=== PATIENT | female | born 1940 | race Caucasian/White ===

== ENCOUNTER 2017-12-22 15:10 | Observation (INO) | payer MEDICARE, BC ==
[~2017-12-22] VITALS: Ht 177.8 cm; Wt 75.0 kg
[~2017-12-22 15:10] MED LIST: ALENDRONATE70 MG PO; AMOXICILLIN/CL500 MG PO; ASPIRIN EC81 MG PO; AUGMENTIN875TAB PO; CIPROFLOXACIN500 M1 PO; CIPROFLOXACN500 MG PO; CLINDAMYCIN HC300 MG PO; DICLOFENAC75 MG PO; FLAGYL500 MG PO; FLEXERIL10 MG PO; FLONASE NASAL50 MCG; LORTAB 5-325 MG1 TAB PO; LORTAB5 PO; MECLIZINE25 MG PO; METRONIDAZOL500 MG PO; PHENERGAN25 MG/TAB PO; PRAVASTATIN SOD20 MG PO; SYNTHROID125 MCG PO; SYNTHROID150 MCG PO; TET/DIP TOX1 ML IM; TRAMADOL HCL50 MG PO; ULTRAM50 M1 PO
[2017-12-22 15:39] VITALS: BP 146/67
[2017-12-22 16:11] LABS: HEMOGLOBIN 14.4 g/dl (12.0-16.0); MEAN CELL VOLUME 90.7 fL CALC (80.0-100.0); MEAN CORPUSCULAR HGB 31.1 pG CALC (26.0-32.0); MEAN CORPUSCULAR HGB CONC 34.3 g/L CALC (32.0-36.0); RED BLOOD COUNT 4.63 mill/uL (4.20-5.60); RED CELL DISTRI WIDTH 12.5 % (11.5-15.5)
[2017-12-22 16:34] VITALS: BP 155/77
[2017-12-22 16:35] LABS: ANION GAP 12 (6-22 (CALC)); BUN 12 mg/dL (8-23); BUN/CREATININE RATIO 18 (12-20 (CALC)); CARBON DIOXIDE 27 mmol/l (22-30); CHLORIDE 106 mmol/l (95-108); CREATININE 0.7 mg/dL (0.5-1.0); GFR > 60 ML/MIN (>=60 (CALC)); GFR FOR AFR.AMER. > 60 ML/MIN (>=60 (CALC)); SODIUM 140 mmol/l (137-146)
[2017-12-22] MEDS ORDERED: CLARITIN10 M2 PO (16:56)
[2017-12-22] MEDS ORDERED: DILTIAZEM120 M1 PO (16:58)
[2017-12-22] MEDS ORDERED: MECLIZINE25 MG PO (16:59)
[2017-12-22] MEDS ORDERED: ALLERGY NA50 MCG/ACT NAB (17:03)
[2017-12-22 17:37] LABS: URINE BILIRUBIN - DIPSTICK NEGATIVE (NEGATIVE); URINE BLOOD DIPSTICK TRACE-INTACT (NEGATIVE); URINE COLOR YELLOW; URINE GLUCOSE - DIPSTICK NEGATIVE (NEGATIVE); URINE KETONE NEGATIVE (NEGATIVE); URINE LEUK ESTERASE NEGATIVE (Negative); URINE NITRITE - DIPSTICK NEGATIVE (Negative); URINE PH 6.5 (4.5-8.0); URINE PROTEIN - DIPSTICK NEGATIVE (NEG-TRACE); URINE SPECIFIC GRAVITY <=1.005; URINE UROBILINOGEN - DIPSTICK 0.2 E.U./dL (0.2)
[2017-12-22 17:45] LABS: URINE CLARITY CLEAR
[2017-12-22 17:47] VITALS: BP 126/71
[2017-12-22 19:25] VITALS: BP 99/58
[2017-12-23 00:10] VITALS: BP 86/57
[2017-12-23 04:00] VITALS: BP 96/59
[2017-12-23 05:24] LABS: HEMOGLOBIN 13.2 g/dl (12.0-16.0); IMMATURE GRANULOCYTES 0.5 % (0.0-1.0); MEAN CELL VOLUME 92.2 fL CALC (80.0-100.0); MEAN CORPUSCULAR HGB 30.4 pG CALC (26.0-32.0); NEUT# 2.31 thou/uL (2.00-7.15); RED BLOOD COUNT 4.34 mill/uL (4.20-5.60); RED CELL DISTRI WIDTH 12.5 % (11.5-15.5)
[2017-12-23 05:42] LABS: ALBUMIN 3.7 g/dL (3.2-5.0); ALKALINE PHOSPHATASE 59 u/l (38-126); ANION GAP 10 (6-22 (CALC)); BILIRUBIN, TOTAL 0.8 mg/dL (0.0-1.4); BUN 12 mg/dL (8-23); BUN/CREATININE RATIO 18 (12-20 (CALC)); CALCULATED LDLCHOLESTEROL 108 mg/dL (62-129 (CALC)); CARBON DIOXIDE 29 mmol/l (22-30); CHLORIDE 105 mmol/l (95-108); CHOLESTEROL HDL RATIO 3.1 (<4.4 (CALC)); CREATININE 0.7 mg/dL (0.5-1.0); GFR > 60 ML/MIN (>=60 (CALC)); GFR FOR AFR.AMER. > 60 ML/MIN (>=60 (CALC)); HDL CHOLESTEROL 64 mg/dL (>=40); SGOT/AST 23 u/l (9-36); SGPT/ALT 33 u/l (11-66); SODIUM 140 mmol/l (137-146); TOTAL CHOLESTEROL 196 mg/dl (0-199); TOTAL PROTEIN 6.3 g/dL (6.3-8.2); TOTAL TRIGLYCERIDES 122 mg/dl (30-149); VLDL CHOLESTROL 24 mg/dl (0-48 (CALC))
[2017-12-23 06:11] LABS: TSH, 3RD GENERATION 3.53 uIU/mL (0.47 - 4.68)
[2017-12-23 08:14] VITALS: BP 98/62
[2017-12-23 11:05] VITALS: BP 110/68
[2017-12-23 15:25] VITALS: BP 130/60
[2017-12-23] MEDS ORDERED: MECLIZINE25 MG PO (17:47)
[2017-12-23] MEDS ORDERED: PHENERGAN25 MG/TAB PO (17:48)
== END 2017-12-23 18:15 | disposition home or self-care (01) ==
LOC: MS2 15:10
PROVIDERS: ADMIT Internal Medicine Geriatric Medicine; ATTEND Internal Medicine Geriatric Medicine
DX: R42 Dizziness and giddiness (principal); R11.0 Nausea; I10 Essential (primary) hypertension; E78.5 Hyperlipidemia, unspecified; E03.9 Hypothyroidism, unspecified; K21.9 Gastro-esophageal reflux disease without esophagitis; F41.9 Anxiety disorder, unspecified; Z85.3 Personal history of malignant neoplasm of breast; Z92.3 Personal history of irradiation

== ENCOUNTER 2018-07-20 16:31 | Observation (INO) | payer MEDICARE, BC, OTHER ==
[~2018-07-20] VITALS: Ht 180.3 cm; Wt 73.0 kg
[~2018-07-20 16:31] MED LIST changes: +ALLERGY NA50 MCG/ACT NAB; +CLARITIN10 M2 PO; +DILTIAZEM120 M1 PO
[2018-07-20 16:45] VITALS: BP 151/71
[2018-07-20 18:39] LABS: URINE BILIRUBIN - DIPSTICK NEGATIVE (NEGATIVE); URINE BLOOD DIPSTICK TRACE-INTACT (NEGATIVE); URINE COLOR YELLOW; URINE GLUCOSE - DIPSTICK NEGATIVE (NEGATIVE); URINE KETONE NEGATIVE (NEGATIVE); URINE LEUK ESTERASE NEGATIVE (NEGATIVE); URINE NITRITE - DIPSTICK NEGATIVE (Negative); URINE PROTEIN - DIPSTICK NEGATIVE (NEG-TRACE); URINE SPECIFIC GRAVITY 1.015; URINE UROBILINOGEN - DIPSTICK 0.2 E.U./dL (0.2)
[2018-07-20 18:39] LABS: HEMOGLOBIN 13.5 g/dl (12.0-16.0); IMMATURE GRANULOCYTES 0.4 % (0.0-5.0); MEAN CELL VOLUME 90.1 fL CALC (80.0-100.0); MEAN CORPUSCULAR HGB 31.2 pG CALC (26.0-32.0); MEAN CORPUSCULAR HGB CONC 34.6 g/L CALC (32.0-36.0); NEUT# 8.47 thou/uL (2.00-7.15); RED BLOOD COUNT 4.33 mill/uL (4.20-5.60); RED CELL DISTRI WIDTH 12.3 % (11.5-15.5)
[2018-07-20 18:51] LABS: ANION GAP 13 (6-22 (CALC)); BUN 8 mg/dL (8-23); BUN/CREATININE RATIO 11 (12-20 (CALC)); CARBON DIOXIDE 27 mmol/l (22-30); CHLORIDE 103 mmol/l (95-108); CREATININE 0.7 mg/dL (0.5-1.0); GFR > 60 ML/MIN (>=60 (CALC)); GFR FOR AFR.AMER. > 60 ML/MIN (>=60 (CALC)); POTASSIUM 3.9 mmol/l (3.5-5.1); SODIUM 139 mmol/l (137-146)
[2018-07-20 20:00] VITALS: BP 129/62
[2018-07-21 04:46] VITALS: BP 105/58
[2018-07-21 05:44] LABS: HEMATOCRIT 38.9 % (37.0-47.0); HEMOGLOBIN 13.3 g/dl (12.0-16.0); IMMATURE GRANULOCYTES 0.2 % (0.0-5.0); MEAN CELL VOLUME 91.1 fL CALC (80.0-100.0); MEAN CORPUSCULAR HGB 31.1 pG CALC (26.0-32.0); MEAN CORPUSCULAR HGB CONC 34.2 g/L CALC (32.0-36.0); NEUT# 8.53 thou/uL (2.00-7.15); RED BLOOD COUNT 4.27 mill/uL (4.20-5.60); RED CELL DISTRI WIDTH 12.5 % (11.5-15.5)
[2018-07-21 05:54] LABS: ALBUMIN 3.7 g/dL (3.2-5.0); ALKALINE PHOSPHATASE 106 u/l (38-126); ANION GAP 16 (6-22 (CALC)); BILIRUBIN, TOTAL 1.4 mg/dL (0.0-1.4); BUN 8 mg/dL (8-23); BUN/CREATININE RATIO 11 (12-20 (CALC)); CALCULATED LDLCHOLESTEROL 110 mg/dL (62-129 (CALC)); CARBON DIOXIDE 24 mmol/l (22-30); CHLORIDE 104 mmol/l (95-108); CHOLESTEROL HDL RATIO 2.6 (<4.4 (CALC)); CREATININE 0.7 mg/dL (0.5-1.0); GFR > 60 ML/MIN (>=60 (CALC)); GFR FOR AFR.AMER. > 60 ML/MIN (>=60 (CALC)); HDL CHOLESTEROL 80 mg/dL (>=40); POTASSIUM 3.8 mmol/l (3.5-5.1); SGOT/AST 33 u/l (9-36); SODIUM 139 mmol/l (137-146); TOTAL CHOLESTEROL 203 mg/dl (0-199); TOTAL PROTEIN 6.4 g/dL (6.3-8.2); TOTAL TRIGLYCERIDES 69 mg/dl (30-149); VLDL CHOLESTROL 14 mg/dl (0-48 (CALC))
[2018-07-21 06:13] LABS: TSH, 3RD GENERATION 1.43 uIU/mL (0.47 - 4.68)
[2018-07-21 08:48] VITALS: BP 100/43
[2018-07-21 11:36] VITALS: BP 114/54
[2018-07-21 16:17] VITALS: BP 122/69
[2018-07-21 17:50] VITALS: BP 125/68
[2018-07-21 20:00] VITALS: BP 121/60
[2018-07-22] VITALS (7 sets, daily range): BP systolic 97–120; BP diastolic 54–71
[2018-07-22 05:36] LABS: HEMATOCRIT 35.8 % (37.0-47.0); HEMOGLOBIN 12.2 g/dl (12.0-16.0); IMMATURE GRANULOCYTES 0.3 % (0.0-5.0); MEAN CELL VOLUME 92.3 fL CALC (80.0-100.0); MEAN CORPUSCULAR HGB 31.4 pG CALC (26.0-32.0); MEAN CORPUSCULAR HGB CONC 34.1 g/L CALC (32.0-36.0); NEUT# 5.54 thou/uL (2.00-7.15); RED BLOOD COUNT 3.88 mill/uL (4.20-5.60); RED CELL DISTRI WIDTH 12.6 % (11.5-15.5)
[2018-07-22 06:07] LABS: ALBUMIN 3.2 g/dL (3.2-5.0); ALKALINE PHOSPHATASE 97 u/l (38-126); ANION GAP 12 (6-22 (CALC)); BILIRUBIN, TOTAL 0.8 mg/dL (0.0-1.4); BUN 5 mg/dL (8-23); BUN/CREATININE RATIO 8 (12-20 (CALC)); CARBON DIOXIDE 25 mmol/l (22-30); CHLORIDE 106 mmol/l (95-108); CREATININE 0.7 mg/dL (0.5-1.0); GFR > 60 ML/MIN (>=60 (CALC)); GFR FOR AFR.AMER. > 60 ML/MIN (>=60 (CALC)); POTASSIUM 4.2 mmol/l (3.5-5.1); SGOT/AST 32 u/l (9-36); SODIUM 140 mmol/l (137-146); TOTAL PROTEIN 5.7 g/dL (6.3-8.2)
[2018-07-23 00:18] VITALS: BP 105/62
[2018-07-23 04:00] VITALS: BP 96/53
[2018-07-23 05:12] LABS: HEMATOCRIT 34.7 % (37.0-47.0); HEMOGLOBIN 11.7 g/dl (12.0-16.0); IMMATURE GRANULOCYTES 0.2 % (0.0-5.0); MEAN CELL VOLUME 92.5 fL CALC (80.0-100.0); MEAN CORPUSCULAR HGB 31.2 pG CALC (26.0-32.0); MEAN CORPUSCULAR HGB CONC 33.7 g/L CALC (32.0-36.0); NEUT# 2.52 thou/uL (2.00-7.15); RED BLOOD COUNT 3.75 mill/uL (4.20-5.60); RED CELL DISTRI WIDTH 12.4 % (11.5-15.5)
[2018-07-23 05:33] LABS: ANION GAP 13 (6-22 (CALC)); BUN 5 mg/dL (8-23); BUN/CREATININE RATIO 7 (12-20 (CALC)); CARBON DIOXIDE 24 mmol/l (22-30); CHLORIDE 107 mmol/l (95-108); CREATININE 0.7 mg/dL (0.5-1.0); GFR > 60 ML/MIN (>=60 (CALC)); GFR FOR AFR.AMER. > 60 ML/MIN (>=60 (CALC)); POTASSIUM 4.3 mmol/l (3.5-5.1); SODIUM 140 mmol/l (137-146)
[2018-07-23 09:49] VITALS: BP 94/72
[2018-07-23 15:20] VITALS: BP 114/66
[2018-07-23 20:00] VITALS: BP 112/67
[2018-07-24 00:32] VITALS: BP 107/67
[2018-07-24 04:30] VITALS: BP 112/72
[2018-07-24 05:29] LABS: HEMATOCRIT 36.8 % (37.0-47.0); HEMOGLOBIN 12.3 g/dl (12.0-16.0); IMMATURE GRANULOCYTES 0.2 % (0.0-5.0); MEAN CORPUSCULAR HGB 30.8 pG CALC (26.0-32.0); MEAN CORPUSCULAR HGB CONC 33.4 g/L CALC (32.0-36.0); NEUT# 2.32 thou/uL (2.00-7.15); RED CELL DISTRI WIDTH 12.2 % (11.5-15.5)
[2018-07-24 05:55] LABS: ANION GAP 13 (6-22 (CALC)); BUN 6 mg/dL (8-23); BUN/CREATININE RATIO 10 (12-20 (CALC)); CARBON DIOXIDE 25 mmol/l (22-30); CHLORIDE 107 mmol/l (95-108); CREATININE 0.6 mg/dL (0.5-1.0); GFR > 60 ML/MIN (>=60 (CALC)); GFR FOR AFR.AMER. > 60 ML/MIN (>=60 (CALC)); POTASSIUM 4.4 mmol/l (3.5-5.1); SODIUM 141 mmol/l (137-146)
[2018-07-24 07:59] VITALS: BP 129/55
[2018-07-24 12:17] VITALS: BP 125/60
[2018-07-24 14:50] VITALS: BP 135/73
[2018-07-24 19:30] VITALS: BP 130/75
[2018-07-25 04:50] VITALS: BP 119/75
[2018-07-25 05:58] LABS: HEMATOCRIT 36.1 % (37.0-47.0); HEMOGLOBIN 12.3 g/dl (12.0-16.0); IMMATURE GRANULOCYTES 0.2 % (0.0-5.0); MEAN CELL VOLUME 91.6 fL CALC (80.0-100.0); MEAN CORPUSCULAR HGB 31.2 pG CALC (26.0-32.0); MEAN CORPUSCULAR HGB CONC 34.1 g/L CALC (32.0-36.0); NEUT# 2.21 thou/uL (2.00-7.15); RED BLOOD COUNT 3.94 mill/uL (4.20-5.60); RED CELL DISTRI WIDTH 12.1 % (11.5-15.5)
[2018-07-25 06:22] LABS: ALBUMIN 3.2 g/dL (3.2-5.0); ALKALINE PHOSPHATASE 83 u/l (38-126); ANION GAP 14 (6-22 (CALC)); BILIRUBIN, TOTAL 0.5 mg/dL (0.0-1.4); BUN 10 mg/dL (8-23); BUN/CREATININE RATIO 14 (12-20 (CALC)); CARBON DIOXIDE 24 mmol/l (22-30); CHLORIDE 107 mmol/l (95-108); CREATININE 0.7 mg/dL (0.5-1.0); GFR > 60 ML/MIN (>=60 (CALC)); GFR FOR AFR.AMER. > 60 ML/MIN (>=60 (CALC)); POTASSIUM 4.7 mmol/l (3.5-5.1); SGOT/AST 24 u/l (9-36); SODIUM 140 mmol/l (137-146); TOTAL PROTEIN 5.6 g/dL (6.3-8.2)
[2018-07-25 08:36] VITALS: BP 117/74
[2018-07-25 12:29] VITALS: BP 141/65
[2018-07-25 16:43] VITALS: BP 131/58
[2018-07-25 19:00] VITALS: BP 126/71
[2018-07-26 00:16] VITALS: BP 127/74
[2018-07-26 04:20] VITALS: BP 117/68
[2018-07-26 08:25] VITALS: BP 128/75
[2018-07-26] MEDS ORDERED: METRONIDAZOL500 MG PO (08:43)
[2018-07-26] MEDS ORDERED: CIPROFLOXACN500 MG PO (08:44)
== END 2018-07-26 11:32 | disposition home or self-care (01) ==
LOC: MS2 16:31
PROVIDERS: ADMIT Internal Medicine Geriatric Medicine; ATTEND Internal Medicine Geriatric Medicine
DX: K57.32 Diverticulitis of large intestine without perforation or abscess without bleeding (principal); I10 Essential (primary) hypertension; E78.5 Hyperlipidemia, unspecified; E03.9 Hypothyroidism, unspecified; M19.90 Unspecified osteoarthritis, unspecified site; Z85.3 Personal history of malignant neoplasm of breast
CPT/HCPCS: Q9967

== ENCOUNTER 2019-11-17 | Emergency (ER) | payer MEDICARE ==
[2019-11-17 16:32] LABS: HEMATOCRIT 43.2 % (37.0-47.0); HEMOGLOBIN 14.7 g/dl (12.0-16.0); IMMATURE GRANULOCYTES 0.4 % (0.0-5.0); MEAN CELL VOLUME 90.4 fL CALC (80.0-100.0); MEAN CORPUSCULAR HGB 30.8 pG CALC (26.0-32.0); NEUT# 3.61 thou/uL (2.00-7.15); RED BLOOD COUNT 4.78 mill/uL (4.20-5.60); RED CELL DISTRI WIDTH 12.5 % (11.5-15.5)
[2019-11-17 16:49] LABS: ALBUMIN 4.8 g/dL (3.2-5.0); ALKALINE PHOSPHATASE 85 u/l (38-126); ANION GAP 10 (6-22 (CALC)); BILIRUBIN, TOTAL 0.8 mg/dL (0.0-1.4); BUN 10 mg/dL (8-23); BUN/CREATININE RATIO 15 (12-20 (CALC)); CARBON DIOXIDE 28 mmol/l (22-30); CHLORIDE 103 mmol/l (95-108); CREATININE 0.7 mg/dL (0.5-1.0); GFR > 60 ML/MIN (>=60 (CALC)); GFR FOR AFR.AMER. > 60 ML/MIN (>=60 (CALC)); LIPASE 190 u/l (23-300); SGOT/AST 39 u/l (9-36); SODIUM 138 mmol/l (137-146); TOTAL PROTEIN 8.1 g/dL (6.3-8.2)
== END 2019-11-17 19:27 | disposition short-term general hospital (02) ==
PROVIDERS: Family Medicine
DX: R07.9 Chest pain, unspecified (principal); I45.10 Unspecified right bundle-branch block; I10 Essential (primary) hypertension; Z86.73 Personal history of transient ischemic attack (TIA), and cerebral infarction without residual deficits
CPT/HCPCS: J1644

== ENCOUNTER 2020-03-22 12:38 | Observation (INO) | payer MEDICARE ==
[~2020-03-22] VITALS: Ht 180.3 cm; Wt 77.1 kg
--- NOTE | 2020-03-22 12:56 | NUR ---
PT TO ROOM VIA EC
[2020-03-22 14:13] LABS: HEMATOCRIT 41.3 % (37.0-47.0); HEMOGLOBIN 13.3 g/dl (12.0-16.0); IMMATURE GRANULOCYTES 0.2 % (0.0-5.0); MEAN CELL VOLUME 92.6 fL CALC (80.0-100.0); MEAN CORPUSCULAR HGB 29.8 pG CALC (26.0-32.0); MEAN CORPUSCULAR HGB CONC 32.2 g/dL CAL (32.0-36.0); NEUT# 8.42 thou/uL (2.00-7.15); RED BLOOD COUNT 4.46 mill/uL (4.20-5.60); RED CELL DISTRI WIDTH 12.1 % (11.5-15.5)
--- NOTE | 2020-03-22 14:17 | NUR ---
PT RESTING ON STRETCHER WITH EYES CLOSED, AWAKENS WITH VERBAL STIMULI. RESPS EVEN AND UNLABORED ON ROOM AIR, MONITORS ATTACHED. ALERT TO PERSON AND PLACE.
[2020-03-22 14:33] LABS: ALBUMIN 4.4 g/dL (3.2-5.0); ALKALINE PHOSPHATASE 73 u/l (38-126); BUN 8 mg/dL (8-23); BUN/CREATININE RATIO 12 (12-20 (CALC)); CHLORIDE 105 mmol/l (95-108); CREATININE 0.7 mg/dL (0.5-1.0); GFR > 60 ML/MIN (>=60 (CALC)); GFR FOR AFR.AMER. > 60 ML/MIN (>=60 (CALC)); LIPASE 97 u/l (23-300); POTASSIUM 3.9 mmol/l (3.5-5.1); SGOT/AST 37 u/l (9-36); SODIUM 136 mmol/l (137-146); TOTAL PROTEIN 7.2 g/dL (6.3-8.2)
--- NOTE | 2020-03-22 14:36 | NUR ---
UNABLE TO OBTAIN IV SITE AFTER MULTIPLE ATTEMPTS BY MULTIPLE NURSES.
[2020-03-22 14:38] LABS: ANION GAP 13 (6-22 (CALC)); BILIRUBIN, TOTAL 1.8 mg/dL (0.0-1.4); CARBON DIOXIDE 22 mmol/l (22-30)
[2020-03-22 14:53] LABS: URINE BILIRUBIN - DIPSTICK NEGATIVE (NEGATIVE); URINE BLOOD DIPSTICK TRACE-INTACT (NEGATIVE); URINE COLOR YELLOW; URINE GLUCOSE - DIPSTICK NEGATIVE (NEGATIVE); URINE KETONE 15 mg/dL (NEGATIVE); URINE LEUK ESTERASE TRACE (NEGATIVE); URINE NITRITE - DIPSTICK NEGATIVE (Negative); URINE PROTEIN - DIPSTICK NEGATIVE (NEG-TRACE); URINE SPECIFIC GRAVITY 1.025; URINE UROBILINOGEN - DIPSTICK 0.2 E.U./dL (0.2)
--- NOTE | 2020-03-22 15:15 | NUR ---
TO RADIOLOGY IN STABLE CONDITION VIA STRETCHER.
--- NOTE | 2020-03-22 15:40 | NUR ---
PT RETURNED FROM RADIOLOGY VIA STRETCHER. #20 RFA INFUSING WITHOUT DIFFICULTY, SITE APPEARS HEALTHY. AT BEDSIDE.
--- NOTE | 2020-03-22 17:00 | NUR ---
ASSISTED PT TO BEDSIDE COMMODE WITH PIVOT TRANSFER. PT ATTEMPTED TO AMBULATE, GAIT UNSTEADY, UNABLE TO TAKE 3 STEPS. AT BEDSIDE.
--- NOTE | 2020-03-22 17:05 | NUR ---
MD AT BEDSIDE TO DISCUSS RESULTS AND POC. AT BEDSIDE.
--- NOTE | 2020-03-22 17:08 | NUR ---
MD AT BEDSIDE TO DISCUSS RESULTS AND POC.
--- NOTE | 2020-03-22 17:50 | NUR ---
NURSE TO NURSE REPORT CALLED TO CORI [facility]FIELD.
--- NOTE | 2020-03-22 18:40 | NUR ---
TO MED SURG VIA STRETCHER.
[2020-03-22 18:45] VITALS: BP 149/79
--- NOTE | 2020-03-22 18:45 | NUR ---
PT ARRIVED TO FLOOR VIA STRETCHER ACCOMPAINED BY ER STAFF. PT DROWSY AT THIS TIME, WAKES TO VERBAL STIMULI AND ANSWERS APPROPRIATELY BUT FALLS ASLEEP MIDSENTENCE. ALERT AND ORIENTED X2 AT THIS TIME. PT AMBULATED FROM STRETCHER TO BED X1 ASSIST. IV SITE APPEARS HEALTHY. PT DENIES ANY PAIN OR NAUSEA AT THIS TIME. DISCUSSED POC AND SAFETY PRECAUTIONS. BED ALARM SET AT THIS TIME. ORIENTED TO ROOM AND CALL LIGHT SYSTEM, WILL REINFORCE NEEDED. SKIN INTACT. DRILL SERGEANT IN PLACE. PT STATES CONTINENT OF BOWEL AND BLADDER. CALL LIGHT WITHIN REACH. WILL CONTINUE TO MONITOR.
--- NOTE | 2020-03-22 21:34 | NUR ---
PT SET OFF BED ALARM AT THIS TIME. PT REORIENTED TO SITUATION. PT VERBALIZED UNDERSTANDING. PT ASSISTED TO BATHROOM X1 ASSIST. PT AMBULATED WITH STEADY GAIT. VOIDED AT THIS TIME WITHOUT DIFFICULTY. PT BACK INTO BED. NO APPARENT DISTRESS NOTED. CALL LIGHT WITHIN REACH AND BED ALARM RESET FOR SAFETY. WILL CONTINUE TO MONITOR.
[2020-03-23 00:40] VITALS: BP 151/83
--- NOTE | 2020-03-23 00:50 | NUR ---
PT COMPLAINING IV SITE PAINFUL. NO REDNESS OR EDEMA NOTED. NEW IV SITE STARTED X1 ATTEMPT. PT TOLERATED WELL. IVF RESTARTED. OLD IV SITE REMOVED, CATH INTACT. PT REQUESTING WATER. ALERT AND ORIENTED X3 AT THIS TIME AND MORE AWAKE. ICE WATER PROVIDED. CALL LIGHT WITHIN REACH AND BED ALARM FOR SAFETY. WILL CONTINUE TO MONITOR.
--- NOTE | 2020-03-23 04:23 | NUR ---
PT MEDICATED FOR HEADACHE WITH PRN APAP. ICE WATER PROVIDED. PT ALERT AND ORIENTED X4 AT THIS TIME. NO APPARENT DISTRESS NOTED. PT DENIES ANY OTHER CURRENT WANTS OR NEEDS. CALL LIGHT WITHIN REACH. WILL CONTINUE TO MONITOR.
[2020-03-23 04:45] VITALS: BP 132/72
[2020-03-23 07:50] VITALS: BP 117/63
--- NOTE | 2020-03-23 07:50 | NUR ---
PT SITTING IN BED. A&O X3. NO DISTRESS NOTED. PT REPORTS TO BE FEELING BETTER, BUT CAN NOT RECALL WHAT HAPPENED YESTERDAY. PT A&O X3. STEADY GAIT OBSERVED DURING AMBULATION TO THE BATHROOM. PT ABLE TO SWALLOW BEDSIDE WATER WITH NO DIFFICULTY. PT ABLE TO FOLLOW COMMANDS, STRONG PRODUCT DIRECTOR BILATERALLY. ASSESSMENT COMPLETED. DISCUSSED POC. CALL LIGHT IN REACH. CONTINUE TO MONITOR.
--- NOTE | 2020-03-23 08:23 | NUR ---
DR GARDUNO AT BEDSIDE DISCUSSING POC
[2020-03-23 08:36] VITALS: BP 117/63
[2020-03-23] MEDS ORDERED: BACTRIM DS1 TAB PO (09:31)
--- NOTE | 2020-03-23 12:29 | NUR ---
Discharge instructions given. Patient verbalizes understanding of same. Discharged in stable condition via wheelchair to home accompanied by staff. All belongings sent with pt.
--- NOTE | 2020-03-23 16:38 | NUR ---
Patient is screened for rehab intervention and no needs are identified at this time
== END 2020-03-23 12:28 | disposition home or self-care (01) ==
LOC: ED 12:38 → ED-I 13:19 → ED 17:08 → MS2 17:09
PROVIDERS: Student in an Organized Health Care Education/Training Program; ADMIT Internal Medicine; ATTEND Internal Medicine
DX: N39.0 Urinary tract infection, site not specified (principal); I12.9 Hypertensive chronic kidney disease with stage 1 through stage 4 chronic kidney disease, or unspecified chronic kidney disease; N18.9 Chronic kidney disease, unspecified; E03.9 Hypothyroidism, unspecified; Z85.3 Personal history of malignant neoplasm of breast; Z87.891 Personal history of nicotine dependence; Z87.440 Personal history of urinary (tract) infections; Z86.73 Personal history of transient ischemic attack (TIA), and cerebral infarction without residual deficits; Z20.828 Contact with and (suspected) exposure to other viral communicable diseases
CPT/HCPCS: G0378; Q9967

== ENCOUNTER 2024-05-31 15:18 | Observation (INO) | payer MEDICARE ==
[~2024-05-31] VITALS: Ht 180.3 cm; Wt 71.2 kg
[2024-05-31] VITALS (8 sets, daily range): BP systolic 110–166; BP diastolic 58–92
[~2024-05-31 15:18] MED LIST changes: +BACTRIM DS1 TAB PO; +DILTIAZEM HYDR120 M1 PO; -DILTIAZEM120 M1 PO
[2024-05-31 15:59] LABS: BASO% 0.6 % (0-3); EOS% 2.2 % (0-8); HEMATOCRIT 42.1 % (37.0-47.0); HEMOGLOBIN 13.8 g/dl (12.0-16.0); LYMPH% 17.8 % (15-41); MEAN CELL VOLUME 91.1 fL CALC (80.0-100.0); MEAN CORPUSCULAR HGB 29.9 pG CALC (26.0-32.0); MEAN CORPUSCULAR HGB CONC 32.8 g/dL CAL (32.0-36.0); MONO% 6.4 % (2-13); NEUT# 3.9 thou/uL (2.00-7.15); RED BLOOD COUNT 4.62 mill/uL (4.20-5.60); RED CELL DISTRI WIDTH 12.9 % (11.5-15.5)
[2024-05-31 16:20] LABS: ALBUMIN 4.4 g/dL (3.2-5.0); ALKALINE PHOSPHATASE 73 u/l (38-126); ANION GAP 14 (6-22 (CALC)); BUN 13 mg/dL (8-23); BUN/CREATININE RATIO 17 (12-20 (CALC)); CARBON DIOXIDE 27 mmol/l (22-30); CHLORIDE 105 mmol/l (95-108); CREATININE 0.8 mg/dL (0.5-1.0); ESTIMATED GFR 74 ML/MIN (>=90 (CALC)); POTASSIUM 4.3 mmol/l (3.5-5.1); SGOT/AST 33 u/l (9-36); SODIUM 141 mmol/l (137-146); TOTAL PROTEIN 7.4 g/dL (6.3-8.2)
--- NOTE | 2024-05-31 16:25 | NUR ---
PATIENT LYING IN BED WITH SPOUSE AT BEDSIDE. NO ACUTE DISTRESS NOTED AT THIS TIME. VSS.
[2024-05-31 18:36] LABS: URINE BILIRUBIN - DIPSTICK Negative (NEGATIVE); URINE BLOOD DIPSTICK Trace-lysed (NEGATIVE); URINE GLUCOSE - DIPSTICK Negative (NEGATIVE); URINE KETONE Negative (NEGATIVE); URINE LEUK ESTERASE Negative (NEGATIVE); URINE NITRITE - DIPSTICK Negative (Negative); URINE PROTEIN - DIPSTICK Negative (NEG-TRACE); URINE UROBILINOGEN - DIPSTICK 0.2 E.U./dL (0.2)
[2024-05-31 18:41] LABS: URINE COLOR Yellow
[2024-05-31] MEDS ORDERED: ASPIRIN 81 MG/TAB PO ONE (19:05)
--- NOTE | 2024-05-31 19:26 | NUR ---
PATIENT AWAITING ROOM AVAILABILITY.MED SURG NURSES CURRENTLY DOING SHIFT CHANGE REPORT.
--- NOTE | 2024-05-31 19:48 | NUR ---
PATIENT UPDATED ON PLAN OF CARE.
[2024-05-31] MEDS ORDERED: Zaleplon 5 MG/CAP PO PRN (19:55)
[2024-05-31] MEDS ORDERED: SODIUM CHLORIDE 0.9% 1,000 ML IV PRN (19:55)
[2024-05-31] MEDS ORDERED: ACETAMINOPHEN 325 MG/TAB PO PRN (19:55)
[2024-05-31] MEDS ORDERED: MAGNESIUM HYDROXIDE 30 ML UDC PO PRN (19:55)
[2024-05-31] MEDS ORDERED: ENOXAPARIN SODIUM 40 MG/0.4 ML SYR SC SCH (21:00)
--- NOTE | 2024-05-31 21:07 | NUR ---
NURSE UN AVAILABLE FOR PATIENT REPORT.
--- NOTE | 2024-05-31 21:07 | NUR ---
NURSE UNAVAILABLEFORPATIENT REPORT.
--- NOTE | 2024-05-31 21:41 | NUR ---
REPORT GIVEN TO Vidal MONCADA LPN.
--- NOTE | 2024-05-31 22:19 | NUR ---
PATIENT TRASNPORTED TO MED SURG ROOM 274
[2024-06-01] VITALS (7 sets, daily range): BP systolic 121–151; BP diastolic 58–71
--- NOTE | 2024-06-01 | NUR ---
PT RECEIVED FROM ER VIA WHEELCHAIR AROUND 2009 HRS. REPORT RECEIVED FROM TRAN BARBOZA. PATIENT IS ALERT AND ORIENTED X4. [place] CHEST PAIN AND ANY DIFFICULTY WITH BREATHING. REPS ARE EVEN AND UNLABORED. NO EDEMA NOTED. LUNGS SOUNDS WERE CLEAR TO AUSCULTATIOB, 20 G IV NOTED ON RIGHT HAND;PT STATED IT HURTS WHEN SHE TOUCHES THE SITE- IV REMOVED. NO TELE. SAFETY SOCKS OFFERED. ORIENTED TO ROOM AND SURROUNDINGS. INSTRUCTED TO CALL FOR ASSISTANCE. CALL LIGHT WITHIN RECAH AND SAFETY PRECAUTIONS IN PLACE.
--- NOTE | 2024-06-01 | NUR ---
PT RCEIVED FROM ER VIA WHEELCHAIR AROUND 2210 HRS. REPORT RECEIVED FROM TRAN BARBOZA. PATIENT IS ALERT AND ORIENTED X4. DENIES ANY CHEST PAIN AND ANY DIFFICULTY WITH BREATHING. RESPS ARE EVN AND UNLABORED. NO EDEMA NOTED. LUNGS SOUNDS WERE CLEAR TO AUSCULTATION. 20 G IV NOTED ON RIGHT HAND- PT STATED IT HURST WHEN SHE TOUCHES THE SITE- IV WAS REMOVED. TELE IN PLACE. SAFETY SOCK OFFERED. PT WAS ORIENTED TO ROOM AND SURROUNDING, INSTRUCTED TO CALL FOR ASSISTANCE IF NEEDED IT. CALL LIGHT WITHIN RECAH AND SAFETY PRECAUTIONS IN PLACE.
--- NOTE | 2024-06-01 01:30 | NUR ---
PATIENT UP IN ROOM WITH STEADY. NO COMPLAINTS AT THIS TIME. STATES THAT SHE CAME TO THE ER FOR DIZZINESS AND "TINGLING" TO LEFT ARM-STATES THAT HAS SINCE RESOLVED. ALERT AND ORIENTEDX3. IV SITE TO RIGHT HAND REMOVED DUE TO PAIN AT THE SITE. NEW IV STARTED TO LEFT FOREARM-#22 GAUGE WITH GOOD BLOOD RFETURN, TELE MONITOR IN PLACE. SAFETY PRECAUTIONS REINFORCED. CALL LIGHT IN REACH. WILL CONT TO MONITOR.
--- NOTE | 2024-06-01 04:54 | NUR ---
PT SITTING UP ON BED WATCHING TV. BREATHING EVEN AND UNLABORED. IVF NS INFUSING AT 100 CC/ML AT THIS TIME. DENIES ANY NEEDS. TELE IN PLACE. CALL LIGHT IN REACH.
[2024-06-01 06:17] LABS: CHOLESTEROL HDL RATIO 2.2 (<4.4 (CALC)); MAGNESIUM 2.3 mg/dL (1.6-2.3)
--- NOTE | 2024-06-01 07:25 | NUR ---
PT SITTING UP IN THE BED AWAKE, PT IS A&O X 3, PUPILS ARE PERRL, NORMAL S1 S2 HEART SOUNDS, TELE MONITOR ON, RESP. EVEN AND UNLABORED, LUNG SOUNDS ARE CLEAR IN ALL CHAIREZ, ABD DISTENED AND SOFT WITH ACTIVE BOWEL SOUNDS, STRONG RADIAL AND PEDAL PULSES, 22G LAC IV WITH FLUIDS INFUSING AT PRESCRIBED RATE, SAFETY MEASURES REINFORCED, CALL ALEXIS WITHIN REACH
[2024-06-01] MEDS ORDERED: LEVOTHYROXINE SODIUM 125 MCG/TAB PO SCH ×2 (07:30→09:00)
[2024-06-01] MEDS ORDERED: dilTIAZem HCl EXTENDED RELEASE 120 MG CAP PO SCH (09:00)
[2024-06-01] MEDS ORDERED: ASPIRIN EC 81 MG/TAB PO SCH (09:00)
[2024-06-01] MEDS ORDERED: ALENDRONATE SOD70 MG PO (12:06)
--- NOTE | 2024-06-01 12:30 | NUR ---
VISITOR AT BEDSIDE, PT REQUESTED COFFEE, COFFEE PROVIDED TO PT
--- NOTE | 2024-06-01 15:20 | NUR ---
PT TO RADIOLOGY VIA
--- NOTE | 2024-06-01 16:05 | NUR ---
PT RETURNED TO THE UNIT VIA WC ACCOMPANIED BY TRIMMING PRESS OPERATOR, PT AMBULATED FROM THE WC TO THE BED WITH A SLOW STEADY GAIT, SAFETY MEASURES REINFORCED, CALL ALEXIS WITHIN REACH
[2024-06-01] MEDS ORDERED: FLUTICASONE PROPIONATE (Nasal) 50MCG/SPRAY INH SCH (21:00)
--- NOTE | 2024-06-01 21:12 | NUR ---
Pt was resting with her eyes closed upon enetering the room. No distress noted. Vitals wnl on ra. Pt reports no chest pain or distress at this time. IV flushed and patent. SL. Pt provided with sleeping aid. Skin intact. No edema noted. Pt instructed on use of call light. Verbalized understanding. Bed in low position.
[2024-06-02] VITALS (7 sets, daily range): BP systolic 124–135; BP diastolic 60–72
--- NOTE | 2024-06-02 | NUR ---
PT SLEEPING BREATHING EVENLY NO DISTRESS NOTED ON EXAM. CALL LIGHT WITHIN REACH. PLAN OF CARE ONGOING.
[2024-06-02 04:21] LABS: BASO% 0.7 % (0-3); EOS% 6.5 % (0-8); HEMATOCRIT 40.3 % (37.0-47.0); HEMOGLOBIN 13.6 g/dl (12.0-16.0); IMMATURE GRANULOCYTES 0.2 % (0.0-5.0); LYMPH% 27.4 % (15-41); MEAN CELL VOLUME 91.2 fL CALC (80.0-100.0); MEAN CORPUSCULAR HGB 30.8 pG CALC (26.0-32.0); MEAN CORPUSCULAR HGB CONC 33.7 g/dL CAL (32.0-36.0); MONO% 8.5 % (2-13); NEUT# 2.52 thou/uL (2.00-7.15); NEUT% 56.7 % (42-76); RED BLOOD COUNT 4.42 mill/uL (4.20-5.60); RED CELL DISTRI WIDTH 12.8 % (11.5-15.5)
[2024-06-02 04:29] LABS: ALBUMIN 3.7 g/dL (3.2-5.0); BILIRUBIN, TOTAL 0.9 mg/dL (0.02-1.3); CREATININE 0.7 mg/dL (0.5-1.0); MAGNESIUM 2.2 mg/dL (1.6-2.3)
--- NOTE | 2024-06-02 05:23 | NUR ---
PT RESTING NO DISTRESS NOTED ON EXAM. PT REPORTS NO PAIN AT THIS TIME. CALL LIGHT WITHIN REACH. PLAN OF CARE ONGOING.
--- NOTE | 2024-06-02 07:40 | NUR ---
PT SITTING UP IN RECLINER READING A MAGAZINE, PT IS A&O X3, PUPILS PERRL, RESP. EVEN AND UNLABORED, LUNG SOUNDS ARE CLEAR, ABD DISTENDED AND SOFT WITH ACTIVE BOWEL SOUNDS, 22G LF IV SL, SITE IS FREE OF REDNESS, STRONG RADIAL AND MEDAL PULSES, SAFETY MEASURES REINFORCED, CALL ALEXIS WITHIN REACH
--- NOTE | 2024-06-02 08:42 | NUR ---
PT AMBULATING IN [place] WITH PHYSICAL THERAPY, PT AMBULATING WITH A SLOW STEADY GAIT
--- NOTE | 2024-06-02 12:00 | NUR ---
PT SITTING UP IN THE RECLINER WATCHING TV, PT DENIES ANY NEEDS AT THIS TIME, PT REMINDED TO CALL FOR ASSISTANCE, CALL ALEXIS WITHIN REACH
--- NOTE | 2024-06-02 15:10 | NUR ---
Discharge instructions given. Patient verbalizes understanding of same. Discharged in stable condition via Wheelchair to Home with spouse. All belongings sent with pt.
== END 2024-06-02 15:09 | disposition home or self-care (01) ==
LOC: ED 15:18 → ED-I 18:35 → ED 19:05 → MS2 19:06
PROVIDERS: Emergency Medicine; Nurse Practitioner Family; ADMIT Internal Medicine; ATTEND Internal Medicine
DX: R07.89 Other chest pain (principal); R55 Syncope and collapse; I12.9 Hypertensive chronic kidney disease with stage 1 through stage 4 chronic kidney disease, or unspecified chronic kidney disease; N18.9 Chronic kidney disease, unspecified; E03.9 Hypothyroidism, unspecified; R42 Dizziness and giddiness; Z86.73 Personal history of transient ischemic attack (TIA), and cerebral infarction without residual deficits; Z85.3 Personal history of malignant neoplasm of breast
CPT/HCPCS: G0378; J1650

== ENCOUNTER 2024-06-17 13:01 | Emergency (ER) | payer MEDICARE ==
[~2024-06-17] VITALS: Ht 180.3 cm; Wt 95.0 kg
[~2024-06-17 13:01] MED LIST changes: +ALENDRONATE SOD70 MG PO
[2024-06-17 13:12] VITALS: BP 169/86
[2024-06-17 13:15] VITALS: BP 169/101
[2024-06-17 13:20] VITALS: BP 163/90
[2024-06-17 14:19] LABS: BASO% 0.4 % (0-3); HEMATOCRIT 38.9 % (37.0-47.0); HEMOGLOBIN 12.8 g/dl (12.0-16.0); LYMPH% 25.7 % (15-41); MEAN CELL VOLUME 90.9 fL CALC (80.0-100.0); MEAN CORPUSCULAR HGB 29.9 pG CALC (26.0-32.0); MEAN CORPUSCULAR HGB CONC 32.9 g/dL CAL (32.0-36.0); MONO% 6.4 % (2-13); NEUT# 3.18 thou/uL (2.00-7.15); NEUT% 63.5 % (42-76); RED BLOOD COUNT 4.28 mill/uL (4.20-5.60); RED CELL DISTRI WIDTH 12.7 % (11.5-15.5)
[2024-06-17 14:33] LABS: ALBUMIN 3.9 g/dL (3.2-5.0); BILIRUBIN, TOTAL 0.9 mg/dL (0.02-1.3); CREATININE 0.6 mg/dL (0.5-1.0); POTASSIUM 3.9 mmol/l (3.5-5.1); TOTAL PROTEIN 6.4 g/dL (6.3-8.2)
[2024-06-17] MEDS ORDERED: LISINOPRIL5 MG PO (16:20)
[2024-06-17] MEDS ORDERED: LISINOPRIL 5 MG/TAB PO ONE (16:20)
[2024-06-17 22:13] VITALS: BP 163/90
== END 2024-06-17 16:30 | disposition home or self-care (01) ==
LOC: ED 13:01
PROVIDERS: Family Medicine
DX: I10 Essential (primary) hypertension (principal); E06.3 Autoimmune thyroiditis

== ENCOUNTER 2024-08-26 14:08 | Emergency (ER) | payer MEDICARE ==
[~2024-08-26] VITALS: Ht 180.3 cm; Wt 72.5 kg
[2024-08-26] VITALS (10 sets, daily range): BP systolic 137–173; BP diastolic 73–95
[~2024-08-26 14:08] MED LIST changes: +LISINOPRIL5 MG PO
[2024-08-26] MEDS ORDERED: Pantoprazole Sodium 40 MG VIAL (Protonix) IV STA (14:32)
[2024-08-26 15:14] LABS: URINE BILIRUBIN - DIPSTICK Negative (NEGATIVE); URINE BLOOD DIPSTICK Trace-lysed (NEGATIVE); URINE COLOR Yellow; URINE GLUCOSE - DIPSTICK Negative (NEGATIVE); URINE KETONE Trace mg/dL (NEGATIVE); URINE LEUK ESTERASE Negative (NEGATIVE); URINE NITRITE - DIPSTICK Negative (Negative); URINE PH 6.5 (4.5-8.0); URINE PROTEIN - DIPSTICK Negative (NEG-TRACE); URINE UROBILINOGEN - DIPSTICK 0.2 E.U./dL (0.2)
[2024-08-26 15:14] LABS: BASO% 0.4 % (0-3); EOS% 2.3 % (0-8); HEMATOCRIT 43.2 % (37.0-47.0); MEAN CELL VOLUME 90.4 fL CALC (80.0-100.0); MEAN CORPUSCULAR HGB 29.3 pG CALC (26.0-32.0); MEAN CORPUSCULAR HGB CONC 32.4 g/dL CAL (32.0-36.0); MONO% 6.5 % (2-13); NEUT% 70.8 % (42-76); RED BLOOD COUNT 4.78 mill/uL (4.20-5.60); RED CELL DISTRI WIDTH 12.6 % (11.5-15.5)
[2024-08-26] MEDS ORDERED: DIATRIZOATE MEGLUMINE & SODIUM 30 ML/BTL PO ONE (15:20)
[2024-08-26 15:27] LABS: ALBUMIN 4.6 g/dL (3.2-5.0); ALKALINE PHOSPHATASE 68 u/l (38-126); ANION GAP 12 (6-22 (CALC)); BILIRUBIN, TOTAL 1.3 mg/dL (0.02-1.3); BUN 8 mg/dL (8-23); BUN/CREATININE RATIO 12 (12-20 (CALC)); CARBON DIOXIDE 24 mmol/l (22-30); CHLORIDE 107 mmol/l (95-108); CREATININE 0.7 mg/dL (0.5-1.0); ESTIMATED GFR 87 ML/MIN (>=90 (CALC)); LIPASE 119 u/l (23-300); POTASSIUM 4.2 mmol/l (3.5-5.1); SGOT/AST 43 u/l (9-36); SODIUM 139 mmol/l (137-146); TOTAL PROTEIN 7.8 g/dL (6.3-8.2)
[2024-08-26] MEDS ORDERED: PEPCID20 MG PO (19:55)
== END 2024-08-26 20:14 | disposition home or self-care (01) ==
LOC: ED 14:08
PROVIDERS: Family Medicine
DX: R10.32 Left lower quadrant pain (principal); I10 Essential (primary) hypertension; Z86.73 Personal history of transient ischemic attack (TIA), and cerebral infarction without residual deficits
CPT/HCPCS: J2470; Q9967